=== PATIENT | female | born 1965 | race Caucasian/White ===

== ENCOUNTER 2018-01-17 16:34 | Emergency (ER) | payer OTHER ==
[~2018-01-17] VITALS: Ht 157.5 cm; Wt 83.0 kg
[~2018-01-17 16:34] MED LIST: AMLODIPINE BESYL5 MG PO; IMITREX50 MG PO; PANTOPRAZOLE SO40 MG PO
[2018-01-17] MEDS ORDERED: SODIUM CHLORIDE 0.9% 1000ML 1,000 ML IV SCH (19:00)
[2018-01-17] MEDS ORDERED: POTASSIUM CHLORIDE 10 MEQ TABCR PO ONE (20:30)
[2018-01-17 21:39] VITALS: BP 148/88
== END 2018-01-17 21:51 | disposition home or self-care (01) ==
LOC: FSED 16:34
DX: R07.89 Other chest pain (principal); E87.6 Hypokalemia; K52.9 Noninfective gastroenteritis and colitis, unspecified
CPT/HCPCS: 80053; 82553; 84484; 85025; 85379; 93005; 99283; J7030